=== PATIENT | male | born 1970 | race Caucasian/White ===

== ENCOUNTER 2016-12-29 12:30 | Emergency (ER) | payer BC, OTHER ==
[~2016-12-29] VITALS: Ht 185.4 cm; Wt 81.8 kg
[2016-12-29 12:32] VITALS: BP 132/82; PULSE 83; RESP 16; TEMP 98.1; O2SAT 99
--- NOTE | 2016-12-29 13:05 | PD ---
HPI Chief Complaint: Oral / Dental Pain or Problem Time Seen by Provider: 13:05 Travel History International Travel<30 days: No Contact w/Intl Traveler<30days: No Traveled to known affect area: No History of Present Illness HPI 46 year old male with PMH of anxiety presents to the ED for evaluation of intermittent bilateral jaw pain. Patient states that he has had this pain off and on for years. He states that left is greater than right. Left jaw pain radiates to the ear. He also complains that when he eats spicy foods he feels as if his salivary glands swell. He states that this swelling resolves spontaneously sometime later. He denies fever, chills, dizziness, vision changes, facial paralysis, difficulties opening or closing the mouth, rhinorrhea , sore throat, difficulty swallowing, chest pain, shortness of breath, abdominal pain, nausea or vomiting. He states that he's been evaluated by his ENT multiple times for similar symptoms. He states that he was scheduled to have an outpatient CT but was denied by his insurance. He states that one of the [place] Boys of salivary cancer and this is a cause of great anxiety for him. He states that he "doesn't like to take pills" and has been noncompliant with several treatments provided by his ENT. He endorses very rare smoking, denies familial history of cancer. [facility] Past Medical History Medical History: Denies Significant Hx Tetanus Vaccination: > 5 Years Influenza Vaccination: No Past Surgical History Surgical History: No Previous Surgery Social History Alcohol Use: No Tobacco Use: No Substance Use: No Allergies-Medications (Allergen,Severity, Reaction): Coded Allergies: Erythromycins (Verified Allergy, Severe, HIVES, 12/29/16) Reported Meds & Prescriptions Reported Meds & Active Scripts Active Cetirizine (Cetirizine HCl) 10 Mg Tab 10 Mg PO DAILY 14 Days Fluticasone Nasal [place] 50 Mcg/Act Naspr 100 Mcg EACH NARE DAILY 14 Days 50 mcg/spray Review of Systems Except as stated in HPI: all other systems reviewed are Neg Physical Exam Narrative GENERAL: Well-nourished, well-developed well-appearing white male in no acute distress. SKIN: Warm and dry. Thorough evaluation reveals no edema, ecchymosis, abrasion , or laceration of the skin. HEAD: Normocephalic. Atraumatic. EYES: No scleral icterus. No injection or drainage. PERRLA. EOMI. ENT: Pearly [place] tympanic membranes bilaterally. Left-sided serous effusion without distortion of the bony landmarks. Nasal mucosa is moist. Oropharynx without erythema, edema or exudate. Uvula midline. Airway patent. DENTAL: No loose or chipped teeth. No malocclusion. Multiple dental caries without signs of infection. NECK: Supple, trachea midline. No JVD. Scattered, mild anterior cervical chain lymphadenopathy bilaterally. No midline tenderness to palpation. Patient retains full, active, painless range of motion of the neck. CARDIOVASCULAR: Regular rate and rhythm without murmurs, gallops, or rubs. 2+ DP and radial pulses bilaterally. RESPIRATORY: Breath sounds clear and equal bilaterally. No accessory muscle use. GASTROINTESTINAL: Abdomen soft, non-tender, nondistended. + Bowel sounds MUSCULOSKELETAL: No cyanosis, or edema. Patient is ambulatory and moves extremities spontaneously. NEUROLOGICAL: Awake and alert. Cranial nerves II through XII intact. Motor and sensory grossly within normal limits. 5/5 muscle strength in all muscle groups. Normal speech. BACK: Nontender without obvious deformity. No CVA tenderness. No midline tenderness. Data Data Last Documented VS Vital Signs Date Time Temp Pulse Resp B/P Pulse Ox O2 Delivery O2 Flow Rate FiO2 12/29/16 12:32 98.1 83 16 132/82 99 MDM Medical Decision Making Medical Screen Exam Complete: Yes Emergency Medical Condition: Yes Differential Diagnosis TMJ versus parotiditis versus otitis media versus anxiety versus head and neck cancer versus other Narrative Course 46 year old male with PMH of anxiety presents to the ED for evaluation of intermittent bilateral jaw pain. Patient states that he has had this pain off and on for years, left is greater than right. Left jaw pain radiates to the ear. He also complains that when he eats spicy foods he feels as if his salivary glands "swell." Swelling resolves spontaneously sometime later. He denies fever, chills, dizziness, vision changes, facial paralysis, difficulties opening or closing the mouth, rhinorrhea, sore throat, difficulty swallowing, chest pain, shortness of breath, abdominal pain, nausea or vomiting. He states that he's been evaluated by his ENT multiple times for similar symptoms. He states that one of the Beast[place] Boys of salivary cancer and this is a cause of great anxiety for him. He states that he "doesn't like to take pills" and has been noncompliant with several treatments provided by his ENT. He endorses very rare smoking, denies familial history of cancer. He states that he sought treatment today because his ENT is out of town. Vitals reviewed. Physical exam reveals a well-appearing white male in no acute distress. There is a serous effusion of the left tympanic membrane and scattered, mild anterior cervical chain lymphadenopathy bilaterally. The ENT exam is otherwise unremarkable. No tenderness to palpation of the parotid glands bilaterally. Cranial nerves II through XII are intact. No masses palpated in the neck. I spent 10-15 minutes reassuring the patient that there was no need for emergent imaging. Unsure of the cause of the patient's symptoms. However, I recommended trial of antihistamine and nasal steroids to treat the middle-ear effusion and possible eustachian tube dysfunction. After much discussion the patient is agreeable to this care plan. He is stable and discharged home. Diagnosis Primary Impression: Middle ear effusion Qualified Code: H65.92 - Middle ear effusion, left Referrals: Ear / Nose / Throat Specialist Patient Instructions: Allergies (ED), General Instructions Additional Instructions: Rest, hydrate. Take medications as prescribed. Follow-up with the ENT as planned. Return to the ED for any urgent or emergent medical condition. Med/Other Pt SpecificInfo: Prescription(s) given Scripts Cetirizine 10 Mg Tab10 Mg PO DAILY 14 Days Ref 0 Prov:Juan David Guadalupe MD 12/29/16 Fluticasone Nasal [place] 50 Mcg/Act [id number] Mcg EACH NARE DAILY 14 Days Ref 0 50 mcg/spray Prov:Juan David Guadalupe MD 12/29/16 Disposition: 01 DISCHARGE HOME Condition: Stable Evelyn Simmons Dec 29, 2016 13:05
[2016-12-29] MEDS ORDERED: FLUT50SP EACH NARE (13:36)
[2016-12-29] MEDS ORDERED: CETI10 PO (13:36)
== END 2016-12-29 13:40 | disposition home or self-care (01) ==
LOC: PHEFT 12:30
DX: H65.92 Unspecified nonsuppurative otitis media, left ear (principal); R59.0 Localized enlarged lymph nodes
CPT/HCPCS: 99283

== ENCOUNTER 2017-02-02 08:11 | Emergency (ER) | payer BC ==
[~2017-02-02] VITALS: Ht 185.4 cm; Wt 81.8 kg
[~2017-02-02 08:11] MED LIST: CETI10 PO; FLUT50SP EACH NARE
[2017-02-02 08:19] VITALS: BP 130/84; PULSE 67; RESP 18; TEMP 98.1; O2SAT 100
[2017-02-02] MEDS ORDERED: SODIUM CHLOR 0.9% 1000 ML INJ 1,000 ML IV ONE (08:47)
--- NOTE | 2017-02-02 08:51 | PD ---
HPI Chief Complaint: Dizziness Time Seen by Provider: 08:47 Travel History International Travel<30 days: No Contact w/Intl Traveler<30days: No Traveled to known affect area: No History of Present Illness HPI 46-year-old male with history of no significant past medical issues, states he has some history of anxiety, presents to the ER today because he states that he had been drinking last evening and smoking, woke up having some dizziness and palpitations, and states that he had some coffee as well this morning, states that it is now subsiding but it made him nervous and he came in. He states that he felt some palpitations and tingling in his left chest which went up and down his body. He denies shortness of breath, fevers, coughing, vomiting, or any other issues. He also states that he could not sleep well last night. Modifying Factors: None Associated Signs & Symptoms: Palpitations, anxiety, chest discomfort Risk Factors: Had been drinking alcohol last night, had less sleep than usual PFSH Past Medical History Medical History: Denies Significant Hx Diminished Hearing: No Influenza Vaccination: No ?: Not Past Surgical History Surgical History: No Previous Surgery Social History Alcohol Use: Yes Tobacco Use: Yes Substance Use: No Allergies-Medications (Allergen,Severity, Reaction): Coded Allergies: Erythromycins (Verified Allergy, Severe, HIVES, 02/02/17) Reported Meds & Prescriptions Reported Meds & Active Scripts Active Review of Systems Except as stated in HPI: all other systems reviewed are Neg Physical Exam Narrative GENERAL: Well-developed middle age male patient who appears mildly anxious, in mild distress. Awake and oriented 3. SKIN: Focused skin assessment warm/dry. HEAD: Atraumatic. Normocephalic. EYES: Pupils equal and round. No scleral icterus. No injection or drainage. ENT: No nasal bleeding or discharge. Mucous membranes pink and moist. NECK: Trachea midline. No JVD. CARDIOVASCULAR: Regular rate and rhythm. No murmur appreciated. Pulses are present and equal bilaterally. RESPIRATORY: No accessory muscle use. Clear to auscultation. Breath sounds equal bilaterally. GASTROINTESTINAL: Abdomen soft, non-tender, nondistended. Hepatic and splenic margins not palpable. MUSCULOSKELETAL: No obvious deformities. No clubbing. No cyanosis. No edema. NEUROLOGICAL: Awake and alert. No obvious cranial nerve deficits. Motor grossly within normal limits. Normal speech. PSYCHIATRIC: Appropriate mood and affect; insight and judgment normal. Data Data Last Documented VS Vital Signs Date Time Temp Pulse Resp B/P Pulse Ox O2 Delivery O2 Flow Rate FiO2 02/02/17 08:58 72 18 119/77 98 Room Air 02/02/17 08:19 98.1 Orders Complete Blood Count With Diff (02/02/17 08:47) Comprehensive Metabolic Panel (02/02/17 08:47) Magnesium (Mg) (02/02/17 08:47) Ecg Monitoring (02/02/17 08:47) Iv Access Insert/Monitor (02/02/17 08:47) Oximetry (02/02/17 08:47) Sodium Chloride 0.9% Flush (Ns Flush) (02/02/17 09:00) Sodium Chlor 0.9% 1000 Ml Inj (Ns 1000 M (02/02/17 08:47) Drug Screen, Random Urine (02/02/17 08:47) Electrocardiogram (02/02/17 08:57) Labs Laboratory Tests Test 02/02/17 08:50 White Blood Count 5.0 TH/MM3 Red Blood Count 4.99 MIL/MM3 Hemoglobin 15.2 GM/DL Hematocrit 45.1 % Mean Corpuscular Volume 90.3 FL Mean Corpuscular Hemoglobin 30.5 PG Mean Corpuscular Hemoglobin 33.8 % Concent Red Cell Distribution Width 13.3 % Platelet Count 168 TH/MM3 Mean Platelet Volume 9.4 FL Neutrophils (%) (Auto) 42.9 % Lymphocytes (%) (Auto) 36.9 % Monocytes (%) (Auto) 7.7 % Eosinophils (%) (Auto) 11.9 % Basophils (%) (Auto) 0.6 % Neutrophils # (Auto) 2.2 TH/MM3 Lymphocytes # (Auto) 1.8 TH/MM3 Monocytes # (Auto) 0.4 TH/MM3 Eosinophils # (Auto) 0.6 TH/MM3 Basophils # (Auto) 0.0 TH/MM3 CBC Comment DIFF FINAL Differential Comment Sodium Level 140 MEQ/L Potassium Level 3.9 MEQ/L Chloride Level 105 MEQ/L Carbon Dioxide Level 27.9 MEQ/L Anion Gap 7 MEQ/L Blood Urea Nitrogen 7 MG/DL Creatinine 0.97 MG/DL Estimat Glomerular Filtration 84 ML/MIN Rate Random Glucose 103 MG/DL Calcium Level 8.9 MG/DL Magnesium Level 2.2 MG/DL Total Bilirubin 0.5 MG/DL Aspartate Amino Transf 20 U/L (AST/SGOT) Alanine Aminotransferase 24 U/L (ALT/SGPT) Alkaline Phosphatase 54 U/L Total Protein 6.9 GM/DL Albumin 4.0 GM/DL [facility] Medical Decision Making Medical Screen Exam Complete: Yes Emergency Medical Condition: Yes Medical Record Reviewed: Yes Interpretation(s) EKG shows normal sinus rhythm at a rate of 70 bpm with a right bundle branch block pattern. No signs of acute ST-T changes. Laboratory Tests Test 02/02/17 08:50 Eosinophils (%) (Auto) 11.9 % (0.0-4.0) Eosinophils # (Auto) 0.6 TH/MM3 (0-0.4) Estimat Glomerular Filtration 84 ML/MIN (>89) Rate Differential Diagnosis Palpitations, dizzinessdehydration versus metabolic issues versus anxiety versus dysrhythmias versus caffeine related side effect Narrative Course EKG did not show significant dysrhythmias. Vital signs are stable in the ER. Lab work did not indicate significant metabolic issues. At this point, I do not see any signs of acute processes and my plan would be to release the patient would follow-up to primary care physician. Return for any worsening in symptoms as needed. The plan has been discussed with the patient and he states understanding. Diagnosis Primary Impression: Palpitations Disposition: 01 DISCHARGE HOME Condition: Stable Charlene Jackson MD February 02, 2017 08:51
[2017-02-02 08:58] VITALS: BP 119/77; PULSE 72; RESP 18; O2SAT 98
[2017-02-02 08:58] LABS: AUTOMATED NEUTROPHIL # 2.2 TH/MM3 (1.8-7.7); BASOPHIL % 0.6 % (0.0-2.0); EOSINOPHIL # 0.6 TH/MM3 (0-0.4); EOSINOPHIL % 11.9 % (0.0-4.0); HEMATOCRIT 45.1 % (39.0-51.0); HEMO FLAGS DIFF FINAL; LYMPH % 36.9 % (9.0-44.0); LYMPHOCYTE # 1.8 TH/MM3 (1.0-4.8); MEAN CELL VOLUME 90.3 FL (80.0-100.0); MEAN CORPUSCULAR HEMOGLOBIN 30.5 PG (27.0-34.0); MEAN CORPUSCULAR HGB CONC 33.8 % (32.0-36.0); MONO % 7.7 % (0.0-8.0); NEUT % 42.9 % (16.0-70.0); PLATELET COUNT 168 TH/MM3 (150-450); RED BLOOD COUNT 4.99 MIL/MM3 (4.50-5.90); RED CELL DISTRIBUTION WIDTH 13.3 % (11.6-17.2)
[2017-02-02] MEDS ORDERED: SODIUM CHLORIDE 0.9% FLUSH 10 ML FLUSH IVF PRN (09:00)
[2017-02-02 09:07] LABS: CHLORIDE 105 MEQ/L (98-107); POTASSIUM 3.9 MEQ/L (3.5-5.1); SODIUM (NA) 140 MEQ/L (136-145)
[2017-02-02 09:11] LABS: ANION GAP 7 MEQ/L (5-15); BICARBONATE 27.9 MEQ/L (21.0-32.0); BLOOD UREA NITROGEN 7 MG/DL (7-18); MAGNESIUM 2.2 MG/DL (1.5-2.5)
[2017-02-02 09:14] LABS: ALT (GPT) 24 U/L (12-78); AST (GOT) 20 U/L (15-37); GLOMERULAR FILTRATION RATE 84 ML/MIN (>89)
[2017-02-02 09:15] LABS: TOTAL BILIRUBIN ADULT 0.5 MG/DL (0.2-1.0)
[2017-02-02 09:17] LABS: ALKALINE PHOSPHATASE 54 U/L (45-117)
--- NOTE | 2017-02-03 11:19 | EKG ---
Date Performed: 02/02/2017 Time Performed: 08:31:02 PTAGE: 46 years EKG: Sinus rhythm Right bundle branch block Abnormal ECG NO PREVIOUS TRACING DOCTOR: Flavio Shine Interpretating Date/Time 02/03/2017 11:17:09
== END 2017-02-02 09:52 | disposition home or self-care (01) ==
LOC: PHED 08:11
DX: R00.2 Palpitations (principal); I45.10 Unspecified right bundle-branch block; R20.2 Paresthesia of skin; F41.9 Anxiety disorder, unspecified; R42 Dizziness and giddiness; Z72.0 Tobacco use; Z88.1 Allergy status to other antibiotic agents; R94.31 Abnormal electrocardiogram [ECG] [EKG]
CPT/HCPCS: 80053; 82550; 82552; 83735; 84484; 85025; 93005; 96360; 99284; J7030

== ENCOUNTER 2017-02-02 15:50 | Emergency (ER) | payer BC ==
[~2017-02-02] VITALS: Ht 186.7 cm; Wt 84.0 kg
[2017-02-02 15:54] VITALS: BP 141/88; PULSE 87; RESP 22; TEMP 98.8; O2SAT 99
--- NOTE | 2017-02-02 15:55 | PD ---
Physical Exam Time Seen by Provider: 15:54 Narrative 46 y/o male here for evaluation of palpitations, mild chest tightness, feels "flushed." Seen earlier today at [facility] for evaluation of the same symptoms. Vital signs reviewed. Seen at triage desk. Awaiting bed placement. Data Data Last Documented VS Vital Signs Date Time Temp Pulse Resp B/P Pulse Ox O2 Delivery O2 Flow Rate FiO2 02/02/17 15:54 98.8 87 22 141/88 99 MDM Medical Record Reviewed: Yes Supervised Visit with LEOBARDO: Jake Schroeder February 02, 2017 15:55
[2017-02-02 18:23] VITALS: BP 116/69; PULSE 70; RESP 18; O2SAT 98
[2017-02-02 18:35] LABS: CREATINE KINASE 212 U/L (39-308)
--- NOTE | 2017-02-02 18:46 | PD ---
HPI Chief Complaint: Cardiac Complaint Time Seen by Provider: 17:30 Travel History International Travel<30 days: No Contact w/Intl Traveler<30days: No Traveled to known affect area: No History of Present Illness HPI 46-year-old male with PMH of untreated anxiety presents to the ED for evaluation of intermittent palpitations, chest tightness, feeling "flushed." Patient can't identify correlating factors. He denies associated shortness of breath, diaphoresis, arm pain, nausea or vomiting. He states that symptoms onset this morning after a night of heavy drinking. He was evaluated at [facility] this morning with the same symptoms and has follow-up with Dr. Sol on 02/04. He has never smoked. He endorses family history of father with WA "in his 60s." [facility] Past Medical History Diminished Hearing: No Tetanus Vaccination: Unknown Influenza Vaccination: No Social History Alcohol Use: Yes Tobacco Use: Yes Substance Use: No Allergies-Medications (Allergen,Severity, Reaction): Coded Allergies: Erythromycins (Verified Allergy, Severe, HIVES, 02/02/17) Reported Meds & Prescriptions Reported Meds & Active Scripts Active Review of Systems Except as stated in HPI: all other systems reviewed are Neg Physical Exam Narrative GENERAL: Well-nourished, well-developed thin, well-appearing white male in no acute distress. SKIN: Focused skin assessment warm/dry. HEAD: Normocephalic. EYES: No scleral icterus. No injection or drainage. NECK: Supple, trachea midline. No JVD or lymphadenopathy. CARDIOVASCULAR: Regular rate and rhythm without murmurs, gallops, or rubs. 2+ DP and radial pulses bilaterally. CHEST: Nontender throughout without deformity or crepitance. RESPIRATORY: Breath sounds clear and equal bilaterally. No accessory muscle use. GASTROINTESTINAL: Abdomen soft, non-tender, nondistended. Active bowel sounds. MUSCULOSKELETAL: No cyanosis, or edema. Patient is ambulatory and moves extremities spontaneously. BACK: Nontender without obvious deformity. No CVA tenderness. Data Data Last Documented VS Vital Signs Date Time Temp Pulse Resp B/P Pulse Ox O2 Delivery O2 Flow Rate FiO2 02/02/17 18:23 70 18 116/69 98 Room Air 02/02/17 15:54 98.8 Orders Electrocardiogram (02/02/17 15:56) Electrocardiogram (02/02/17 17:34) Ckmb (Isoenzyme) Profile (02/02/17 17:34) Troponin I (02/02/17 17:34) CKMB (02/02/17 18:05) CKMB% (02/02/17 18:05) Labs Laboratory Tests Test 02/02/17 18:05 Total Creatine Kinase 212 U/L Creatine Kinase MB 0.6 NG/ML Troponin I LESS THAN 0.02 NG/ML MDM Medical Decision Making Medical Screen Exam Complete: Yes Emergency Medical Condition: Yes Differential Diagnosis Anxiety versus alcohol induced palpitations versus dehydration versus electrolyte abnormalities versus less likely ACS versus other Narrative Course 46-year-old male with PMH of untreated anxiety presents to the ED for evaluation of intermittent palpitations, chest tightness, feeling "flushed." Patient can't identify correlating factors. He denies associated shortness of breath, diaphoresis, arm pain, nausea or vomiting. He states that symptoms onset this morning after a night of heavy drinking. He was evaluated at [facility] this morning with the same symptoms and has follow-up with Dr. Sol on 02/04. He has never smoked. He endorses family history of father with WA "in his 60s." Vitals reviewed. Physical exam is reassuring. EKG rate 90, sinus rhythm. AZ interval 136, QRS 148, QTC 417. Right bundle branch block. Normal axis. No ST elevations or depressions. Reviewed by . No changes as compared to this morning's EKG. Cardiac enzymes negative 1. I spent 15 minutes discussing risk of WA with the patient. I spoke that his symptoms are either caused by anxiety or due to heavy consumption of alcohol overnight. He has follow-up in [address] Sol. He is instructed return to normal, gentle activities, follow-up with Dr. Sol as planned. He indicated understanding of instructions and is agreeable to the care plan. He is stable and discharged home. Diagnosis Primary Impression: Palpitations Referrals: Nelia Sol MD Patient Instructions: General Instructions, Palpitations (ED) Additional Instructions: Rest, hydrate. Return to normal, gentle activity as tolerated. Follow-up with Dr. Sol on as planned. Return to the ED for any urgent or emergent medical condition. Disposition: DISCHARGE HOME Condition: Stable Evelyn Simmons February 02, 2017 18:46
[2017-02-02 18:49] LABS: CKMB 0.6 NG/ML (0.5-3.6)
--- NOTE | 2017-02-03 11:01 | EKG ---
Date Performed: 02/02/2017 Time Performed: 16:06:42 PTAGE: 46 years EKG: Sinus rhythm RIGHT BUNDLE BRANCH BLOCK ABNORMAL ECG PREVIOUS TRACING : 02/02/2017 16.05 DOCTOR: Flavio Shine Interpretating Date/Time 02/03/2017 10:59:27
== END 2017-02-02 20:00 | disposition home or self-care (01) ==
LOC: NEPD 15:50
DX: R00.2 Palpitations (principal); R94.31 Abnormal electrocardiogram [ECG] [EKG]; Z72.0 Tobacco use
CPT/HCPCS: 82550; 82552; 84484; 93005

== ENCOUNTER 2017-08-09 11:30 | Emergency (ER) | payer BC ==
[~2017-08-09] VITALS: Ht 185.4 cm; Wt 78.0 kg
[2017-08-09 11:33] VITALS: BP 147/88; PULSE 101; RESP 22; TEMP 98; O2SAT 99
[2017-08-09 11:40] VITALS: BP 120/79; PULSE 78; RESP 19; TEMP 98.2; O2SAT 100
[2017-08-09] MEDS ORDERED: FLUT1SPR5 EACH NARE (12:22)
--- NOTE | 2017-08-09 12:22 | PD ---
HPI Chief Complaint: Medical Clearance Time Seen by Provider: 11:50 Travel History International Travel<30 days: No Contact w/Intl Traveler<30days: No Traveled to known affect area: No History of Present Illness HPI 47-year-old male presents the emergency department with sudden onset or ringing, followed by palpitations, shortness of breath, chest tightness, and tingling in the feet and hands. Patient states he's had intermittent tinnitus symptoms for the past couple of weeks. He denies headache, sore throat, or other symptoms. Patient was concerned that he might be having a stroke which is why he came into the emergency department today. Vital signs upon arrival are improved with normal heart rate and blood pressure. The patient states the tingling in his hands has gone. He states the ringing in his ears has improved as well. Patient is noted to have had a full cardiac workup in February due to his recurrent health limitations. Significant findings were noted at that time. Patient is allergic to azithromycin and erythromycin. PFSH Past Medical History Heart Rhythm Problems: Yes (RBB) Cardiovascular Problems: Yes Diminished Hearing: No Tetanus Vaccination: Unknown Influenza Vaccination: No Past Surgical History Surgical History: No Previous Surgery Social History Alcohol Use: Yes (OCC) Tobacco Use: Yes Substance Use: No Allergies-Medications (Allergen,Severity, Reaction): Coded Allergies: azithromycin (Unverified Allergy, Severe, HIVES, 08/09/17) erythromycin base (Unverified Allergy, Severe, HIVES, 08/09/17) Reported Meds & Prescriptions Reported Meds & Active Scripts Active Flonase Nasal [place] (Fluticasone Nasal [place]) 50 Mcg/Act [place] 100 Mcg EACH NARE BID Review of Systems Except as stated in HPI: all other systems reviewed are Neg General / Constitutional: No: Fever Eyes: No: Visual changes HENT: Positive: Lightheadedness, Other (Tinnitis), No: Headaches, Vertigo, Sore Throat, Rhinitis, Rhinorrhea, Congestion, Nosebleed, Neck Stiffness, Gingival Bleeding, Dental Difficulties, Ear Discharge, Earache Cardiovascular: Positive: Palpitations, No: Chest Pain or Discomfort, Irregular Rhythm, Tachycardia Respiratory: Positive: Shortness of Breath Gastrointestinal: No: Abdominal Pain Genitourinary: No: Dysuria Musculoskeletal: No: Pain Skin: No Rash Neurologic: No: Weakness Psychiatric: No: Depression Endocrine: No: Polydipsia Hematologic/Lymphatic: No: Easy Bruising Physical Exam Narrative GENERAL: Patient appears anxious but otherwise in no acute distress. SKIN: Warm and dry. Normal turgor. HEAD: Atraumatic. Normocephalic. EYES: Pupils equal and round. No scleral icterus. No injection or drainage. ENT: No nasal bleeding or discharge. Mucous membranes pink and moist. Patient has bilateral serous effusions to both TMs without significant erythema or dullness. No sinus tenderness to palpation or percussion. Her. Airway is patent. NECK: Trachea midline. Supple nontender. CARDIOVASCULAR: Regular rate and rhythm. RESPIRATORY: No accessory muscle use. Clear to auscultation. Breath sounds equal bilaterally. GASTROINTESTINAL: Abdomen soft, non-tender, nondistended. Hepatic and splenic margins not palpable. MUSCULOSKELETAL: Extremities without clubbing, cyanosis, or edema. No obvious deformities. NEUROLOGICAL: Awake and alert. No obvious cranial nerve deficits. Normal fine motor skill exam. Motor grossly within normal limits. Five out of 5 muscle strength in the arms and legs. Normal speech. PSYCHIATRIC: Appropriate mood and affect; insight and judgment normal. Data Data Last Documented VS Vital Signs Date Time Temp Pulse Resp B/P (MAP) Pulse Ox O2 Delivery O2 Flow Rate FiO2 08/09/17 11:50 79 19 08/09/17 11:40 98.2 120/79 (93) 100 MDM Medical Decision Making Medical Screen Exam Complete: Yes Emergency Medical Condition: Yes Medical Record Reviewed: Yes Differential Diagnosis Tinnitis. Eustachian tube dysfunction. Anxiety. Hyperventilation. Narrative Course Patient is evaluated felt to have tendinitis secondary to eustachian tube dysfunction and anxiety. Further medical workup was not deemed warranted based on my history and physical. Had a long discussion with the patient regarding anxiety and panic attacks and his need for further follow-up with a local psychiatrist or counselor. Patient will be treated with Flonase nasal spray 2 sprays nostril daily for his eustachian tube dysfunction. Patient is encouraged to follow local counselor as discussed for his anxiety. Patient can return the emergency Department with any worsening symptoms as needed. Diagnosis Primary Impression: Middle ear effusion Qualified Codes: H65.92 - Unspecified nonsuppurative otitis media, left ear Additional Impressions: Panic attack as reaction to stress H/O tinnitus Referrals: [facility] Patient Instructions: Anxiety (ED), Eustachian Tube Dysfunction (GEN), General Instructions, Moderate Sedation in Children (ED) Additional Instructions: Patient is evaluated felt to have tendinitis secondary to eustachian tube dysfunction and anxiety. Further medical workup was not deemed warranted based on my history and physical. Had a long discussion with the patient regarding anxiety and panic attacks and his need for further follow-up with a local psychiatrist or counselor. Patient will be treated with Flonase nasal spray 2 sprays nostril daily for his eustachian tube dysfunction. Patient is encouraged to follow local counselor as discussed for his anxiety. Patient can return the emergency Department with any worsening symptoms as needed. Med/Other Pt SpecificInfo: Prescription(s) given Scripts Fluticasone Nasal [place] (Flonase Nasal [place]) 50 Mcg/Act [place] 100 MCG EACH NARE BID for Allergies, #1 BOTTLE 0 Refills Prov: Lisa River MD 08/09/17 Disposition: 01 DISCHARGE HOME Condition: Stable Kehinde Garza Aug 09, 2017 12:22
== END 2017-08-09 13:09 | disposition home or self-care (01) ==
LOC: NEPD 11:30
DX: H65.92 Unspecified nonsuppurative otitis media, left ear (principal); F41.0 Panic disorder [episodic paroxysmal anxiety]; F43.0 Acute stress reaction; F41.9 Anxiety disorder, unspecified; R00.2 Palpitations; R42 Dizziness and giddiness; R20.2 Paresthesia of skin; Z72.0 Tobacco use
CPT/HCPCS: 99283

== ENCOUNTER 2018-02-22 12:02 | Day surgery (SDC) | payer BC ==
[~2018-02-22] VITALS: Ht 185.4 cm; Wt 81.4 kg
[~2018-02-22 12:02] MED LIST changes: -CETI10 PO; +FLUT1SPR5 EACH NARE; -FLUT50SP EACH NARE
[2018-02-22] MEDS ORDERED: IOHEXOL 350 MG/ML 100 ML BTL (for Cath Lab) OTHER ONE (12:03)
[2018-02-22] MEDS ORDERED: ALPR.5 PO (12:55)
[2018-02-22] MEDS ORDERED: MULT-65 PO (12:55)
[2018-02-22 12:58] VITALS: BP 147/80; PULSE 85; RESP 18; TEMP 98.8; O2SAT 100
[2018-02-22 12:58] LABS: AUTOMATED NEUTROPHIL # 3.2 TH/MM3 (1.8-7.7); BASOPHIL % 0.9 % (0.0-2.0); EOSINOPHIL # 0.2 TH/MM3 (0-0.4); EOSINOPHIL % 4.4 % (0.0-4.0); HEMATOCRIT 46.3 % (39.0-51.0); HEMOGLOBIN 15.9 GM/DL (13.0-17.0); LYMPH % 27.9 % (9.0-44.0); LYMPHOCYTE # 1.5 TH/MM3 (1.0-4.8); MEAN CELL VOLUME 89.8 FL (80.0-100.0); MEAN CORPUSCULAR HEMOGLOBIN 30.8 PG (27.0-34.0); MEAN CORPUSCULAR HGB CONC 34.3 % (32.0-36.0); MEAN PLATELET VOLUME 9.7 FL (7.0-11.0); MONO % 7.8 % (0.0-8.0); MONOCYTE # 0.4 TH/MM3 (0-0.9); PLATELET COUNT 187 TH/MM3 (150-450); RED BLOOD COUNT 5.15 MIL/MM3 (4.50-5.90); RED CELL DISTRIBUTION WIDTH 12.9 % (11.6-17.2); WHITE BLOOD COUNT 5.4 TH/MM3 (4.0-11.0)
[2018-02-22] MEDS ORDERED: DIAZEPAM 10 MG TAB PO ONE (13:00)
[2018-02-22] MEDS ORDERED: NS 1000P @30 MLS/HR (KVO) IV SCH (13:00)
[2018-02-22 13:18] LABS: BICARBONATE 26.2 MEQ/L (21.0-32.0); CALCIUM 9.6 MG/DL (8.5-10.1); CREATININE 1.03 MG/DL (0.60-1.30)
[2018-02-22] MEDS ORDERED: HEPARIN-NS/PF INJ 1,000 ML ONE (13:18)
[2018-02-22] MEDS ORDERED: MIDAZOLAM HCL 2 MG/2 ML VIAL ONE (13:31)
--- NOTE | 2018-02-22 14:40 | CATHPROC ---
[facility] HIS Report Study Information Study Number Admission Scheduled Start Study Start [id number] Feb 22 2018 12:02PM 02/22/2018 Feb 22 2018 1:18PM [place] [facility] Cardiac Catheterization Admit Source Facility Department Other [facility] - Nursing Clinical Director Physician and Clinical Staff Initial Nelia Arshad Accounts Officer David Hernandez,SAVANNAH Accounts Officer Lucho Webster,RN Recorder Seth Manriquez,RT(R) ScrTeri Zapata,RT(R) (BS) Procedures Performed Procedure Location (Site) Vessel Name Angiogram LV LV Ventricle Coronary Angiograms LCA Left Coronary Coronary Angiograms RCA Right Coronary L Heart Cath Equipment Time Receiving Tank Operator Description Size Mfg Part Number Used/Scraped TRANSDUCER, TRTrace TechnologiesAVE [id number] 13:24 MCDONALD LAWSON * Used W/STOCKCOCK *[id number] [id number] *[id number] [id number] *[id number] [id number] *[id number] 13:24 [employer] BLANKET,WARM AIR CCL * Used *[id number] 13:24 [employer] PACK, CCL CUSTOM * Used *[id number] 13:24 [employer] PACER PEN, SKIN DUAL W/ RULER * Used *[id number] 13:24 [employer] MEDICAL WIRE, 3MMJ .035 180CM 180CM Used *[id number] PROBE COVER, STERILE [id number] 13:24 [employer] MEDICAL * Used ULTRASOUND W/ GEL *[id number] 13:24 NAMIC MANIFOLD, 4 PORT * Used *[id number] 13:24 NAMIC TUBING, HIGH PRESSURE 48" 48" Used *[id number] 13:24 [employer]COMED OMNIPAQUE, 350 MG, 150ML 150ML [id number] Used 14:07 [employer]ED OMNIPAQUE, 350 MG, 50ML 50ML [id number] Used [id number] 13:43 [employer]UMO MEDICAL SHEATH, FR4 TERUMO (10CM) FR 4 Used *[id number] 13:24 [employer] MED[employer] SHEATH, FR5 TERUMO (10CM) FR 5 Used *[id number] History: Current Medications Medication Dosage/Unit Route Frequency Last Date/Time Taken Xanax History: Allergies Allergy Reaction Erythromycins HIVES erythromycin base HIVES azithromycin HIVES History: Risk Factors Family History of Hypertension Dyslipidemia Previous MN Previous Heart Failure Premature CAD No No No No No Prior Valve Prior PCI Prior CABG Surgery No No No Cerebrovascular Peripheral Artery Chronic Lung On Dialysis Diabetes Disease Disease Disease No No No No No History: Symptoms/Diagnosis Selection Items Chest pain SOB History: Stress Tests Stress or Imaging Studies Performed Yes Standard Exercise Stress Test No Stress Echo No Stress Test SPECT Stress Test SPECT Result Stress Test SPECT Ischemia Risk/Extent Yes Positive Intermediate Stress Test CMR No Cardiac CTA Coronary Calcium Score No No History: Other Current Smoker No Labs Hgb (g/dl) Hct (%) RBC (MIL/MM3) WBC (l/cumm) Platelets (thousands) 11.60-17.00 35.00-51.00 4.00-5.90 4.00-11.00 150.00-450.00 15.9 46.3 5.1 5.4 187 Glucose (mg/dl) BUN (mg/dl) Creatinine (mg/dl) BUN:Creatinine (1:x) 74.00-106.00 7.00-18.00 0.50-1.30 10.00-20.00 99 12 1.0 12 Na (meq/l) K (meq/l) Cl (meq/l) CO2 (mmol/L) Ca (mg/dl) 136.00-145.00 3.50-5.10 98.00-107.00 21.00-32.00 8.50-10.10 140 3.3 102 26.2 9.6 CPK-MB (ng/ML) 0.50-3.60 Not Drawn Medication Medication Total Dose (Bolus/Oral) Medication Total Dosage/Unit 1% XYLOCAINE 20 mL FENTANYL 50 mcg VERSED 2 mg Medications (Bolus/Oral) Medication Time Given Dosage/Unit Administered By Reason VERSED 02/22/2018 1:50:00 PM 0.5 mg David Hernandez 0.5 mg VERSED given in lab by David Hernandez RN in Left Antecubital via Peripheral IV. FENTANYL 02/22/2018 1:51:00 PM 25 mcg David Hernandez 25 mcg FENTANYL given in lab by David Hernandez, SAVANNAH in Left Antecubital via Peripheral IV. VERSED 02/22/2018 1:58:00 PM 0.5 mg David Hernandez 0.5 mg VERSED given in lab by David Hernandez RN in Left Antecubital via Peripheral IV. 1% XYLOCAINE 02/22/2018 2:01:57 PM 20 mL Nelia Sol 20 mL 1% XYLOCAINE given in lab by eNlia Sol in Right Groin via Subcutaneous. VERSED 02/22/2018 2:02:57 PM 1 mg David Hernandez 1 mg VERSED given in lab by David Hernandez RN in Left Antecubital via Peripheral IV. FENTANYL 02/22/2018 2:04:26 PM 25 mcg David Hernandez 25 mcg FENTANYL given in lab by David Hernandez RN in Left Antecubital via Peripheral IV. Medication (Drip) Medication Time Given Dosage/Unit Concentration/Unit Diluent (ml) Solution IV Solutions 02/22/2018 1:21:16 PM 0 mL (IV) 500 NaCl .9 IV Solutions given in lab by Lucho Webster RN in Left Antecubital via Peripheral IV. Pump/Drip Flow = 20 ml/hr using NaCl .9. Initial Case Assessment Cardiovascular HR Rhythm NIBP Chest Pain 79 Sinus 125/76 0 Edema Present Skin color Skin None Normal Warm Dry Circulatory - Right Pulses Dorsalis Pedis Femoral 2 2 Scale (0,1,2,3,4,d) Circulatory - Left Pulses Dorsalis Pedis Femoral 2 2 Scale (0,1,2,3,4,d) Neurological State Oriented to time-place- Alert Moves all extremities person Respiration - General Respiration Rate SpO2 (%) O2 (lpm) (B/min) 8 100 0 Final Case Assessment Cardiovascular HR Rhythm NIBP Chest Pain 79 Sinus 122/70 0 Edema Present Skin color Skin None Normal Warm Dry Circulatory - Right Pulses Dorsalis Pedis Femoral 2 2 Scale (0,1,2,3,4,d) Circulatory - Left Pulses Dorsalis Pedis Femoral 2 2 Scale (0,1,2,3,4,d) Neurological State Oriented to time-place- Alert Moves all extremities person Respiration - General Respiration Rate SpO2 (%) O2 (lpm) (B/min) 8 99 0 Chronological Log Time Study Chronological Log 13:13:29 Patient arrived via Bed. 13:18:37 Patient Name, D.O.B, / Armband Verified By R.N. 13:18:38 Consent signed by the physician and the patient and verified by the Nursing Clinical Director staff. 13:18:38 Pre-op and post- op instructions given; patient acknowledges understanding of instructions. 13:18:39 Verbal Stimulation=2 Physical Stimulation=2 Airway=2 Respiration=2 TOTAL=8. (0=absent, 1=li mited, 2=present) 13:20:47 Presedation assessment performed by Nursing Clinical Director RN. 13:20:51 Patient has been NPO for More than 6Hrs. 13:20:53 Skin Breakdown-none per patient. 13:20:54 Patient Warmer Placed on the Table. 13:20:57 Charis Prominences Protected 13:20:57 A # 20 IV was noted in the Antecubital (left). Grade = 0 IV Solutions given in lab by Lucho Webster RN in Left Antecubital via Peripheral IV. Pump/Drip Flow = 20 ml/hr using 13:21:16 NaCl .9. Assessment: Initial Case, HR=79 BPM, Rhythm=Sinus, PQIN=710/76 mmhg, Chest Pain=0, Edema=None, Color=Normal, Skin = Warm, Dry Right Pulses: David Ped=2, Femoral=2 13:21:37 Left Pulses: David Ped=2, Femoral=2 Neurological: State=Alert, Ox3, MARTIN Respiration: Resp=8 B/min, RkZ2=265 %, O2=0 lpm 13:21:37 History and physical on the chart or being dictated. Vitals capture started with the following parameters, Patient=Adult, Interval=5 min, Initial Pr inunhl=147 mmHg, 13:21:48 Deflation Rate=5 mmHg, Cuff placed on Right Arm 13:22:08 Reference ECG taken 13:22:26 HR=76 bpm, KSUP=531/76 mmhg, QvP7=766.0 %, Resp=7 B/min, Pain=0, Zhanna=10, Almanza=2 13:23:16 Bilateral groins prepped with 2% chlorhexidine, and draped after a 3 minute waiting time. 13:27:23 HR=89 bpm, HXKZ=326/67 mmhg, IfZ5=034.0 %, Resp=14 B/min, Pain=0, Zhanna=10, Almanza=2 13:30:42 MD paged 13:30:55 Pressure channel 1 zeroed. 13:32:22 HR=81 bpm, SZQT=748/80 mmhg, ShI7=128.0 %, Resp=9 B/min, Pain=0, Zhanna=10, Almanza=2 13:37:23 HR=78 bpm, KKNB=521/75 mmhg, DuU7=157.0 %, Resp=8 B/min, Pain=0, Zhanna=10, Almanza=2 13:42:24 HR=78 bpm, KCCU=503/71 mmhg, EyV3=507.0 %, Resp=7 B/min, Pain=0, Zhanna=10, Almanza=2 13:47:22 MD arrived. 13:47:25 HR=75 bpm, PIKD=311/68 mmhg, SpO2=99.0 %, Resp=6 B/min, Pain=0, Zhanna=10, Almanza=2 13:50:00 0.5 mg VERSED given in lab by David Henrandez RN in Left Antecubital via Peripheral IV. 13:51:00 25 mcg FENTANYL given in lab by David Hernandez, SAVANNAH in Left Antecubital via Peripheral IV. 13:52:22 HR=75 bpm, YPHW=367/76 mmhg, SpO2=99.0 %, Resp=12 B/min, Pain=0, Zhanna=10, Almanza=2 13:57:25 HR=75 bpm, UFMN=262/78 mmhg, SpO2=99.0 %, Resp=8 B/min, Pain=0, Zhanna=10, Almanza=2 13:58:00 0.5 mg VERSED given in lab by David Hernandez, SAVANNAH in Left Antecubital via Peripheral IV. Time Out. Correct patient, correct procedure, correct physician, labs, allergies, and equipment verified with laborer electroplating 14:01:26 team present. Fire risk assesment completed (see hard stop sheet for coding). Time Out Conc urred by and individual staff in procedure. 14:01:39 Case Start 14:01:57 20 mL 1% XYLOCAINE given in lab by Nelia Sol in Right Groin via Subcutaneous. 14:02:24 HR=84 bpm, YNGI=112/76 mmhg, SpO2=98.0 %, Resp=12 B/min, Pain=0, Zhanna=10, Almanza=2 14:02:57 1 mg VERSED given in lab by David Hernandez RN in Left Antecubital via Peripheral IV. 14:04:12 Access site was Right Femoral Artery. 14:04:26 25 mcg FENTANYL given in lab by David Hernandez, RN in Left Antecubital via Peripheral IV. 14:04:33 A SHEATH, FR5 TERUMO (10CM) FR 5 was advanced into the Fem Art (right) using the ~TECHNIQUE ~ technique. A PIGTAIL ANG. INFINITI CATHETER FR 5 was advanced over a wire. OMNIPAQUE, 350 MG, 150ML 150ML was used 14:05:05 for injections. 14:06:54 The LV was injected at 10 cc/sec for a total of 30. OMNIPAQUE, 350 MG, 50ML 50ML used. 14:07:25 HR=84 bpm, ZWGI=698/69 mmhg, SpO2=97.0 %, Resp=10 B/min, Pain=0, Zhanna=10, Almanza=2 Recorded Pressure: LV, HR=84, Condition=Condition 1 14:07:36 (Left Ventricle) LV 99/-2/7 Recorded Pressure: LV, Ao, HR=83, Condition=Condition 1 14:07:41 (Left Ventricle) LV 99/-3/5, (Aorta) Ao 102/63/81 14:08:16 Catheter was removed A JL 4.0 INFINITI CATHETER FR 5 was advanced over a wire. OMNIPAQUE, 350 MG, 150ML 150ML was us ed for 14:08:17 injections. Recorded Pressure: Ao, HR=80, Condition=Condition 1 14:09:31 (Aorta) Ao 107/69/86 14:09:57 The LCA was injected and visualized at various angles. OMNIPAQUE, 350 MG, 150ML 150ML used . 14:11:05 Catheter was removed A JR 4.0 INFINITI CATHETER FR 5 was advanced over a wire. OMNIPAQUE, 350 MG, 150ML 150ML was us ed for 14:11:37 injections. 14:12:23 The RCA was injected and visualized at various angles. OMNIPAQUE, 350 MG, 150ML 150ML use d. 14:12:29 HR=91 bpm, FTBX=731/72 mmhg, SpO2=98.0 %, Resp=13 B/min, Pain=0, Zhanna=10, Almanza=2 14:12:57 Catheter was removed 14:15:28 Case End 14:16:35 No case complications noted. 14:16:37 Cine recording checked. 14:17:28 HR=83 bpm, DAGC=972/70 mmhg, SpO2=97.0 %, Resp=16 B/min, Pain=0, Zhanna=10, Almanza=2 14:21:43 Bedside Report will be given. Assessment: Final Case, HR=79 BPM, Rhythm=Sinus, XHTH=402/70 mmhg, Chest Pain=0, Edema=None, Color=Normal, Skin = Warm, Dry Right Pulses: David Ped=2, Femoral=2 14:21:48 Left Pulses: David Ped=2, Femoral=2 Neurological: State=Alert, Ox3, MARTIN Respiration: Resp=8 B/min, SpO2=99 %, O2=0 lpm 14:22:17 Sheath removed; pressure applied to access site. 14:22:27 HR=85 bpm, UPUE=923/72 mmhg, SpO2=99.0 %, Resp=6 B/min, Pain=0, Zhanna=10, Almanza=2 14:24:03 A Left Heart Cath was performed. 14:27:24 HR=81 bpm, YBMV=023/77 mmhg, SpO2=95.0 %, Resp=12 B/min, Pain=0, Zhanna=10, Almanza=2 14:32:29 HR=75 bpm, HSXR=959/71 mmhg, SpO2=96.0 %, Resp=7 B/min, Pain=0, Zhanna=10, Almanza=2 14:37:27 Sterile dressing applied to site 14:37:30 HR=74 bpm, BHIC=896/72 mmhg, SpO2=95.0 %, Resp=12 B/min, Pain=0, Zhanna=10, Almanza=2 14:37:41 Vitals capture stopped. 14:40:51 Patient moved to stretcher End Study - Contrast Media Used In Study Contrast Total Opened (mL) Total Used (mL) Total Wasted (mL) Omnipaque 200 60 140 End Study - Maximum Contrast Load Max Contrast Load (mL) 407.0 End Study - Radiation Exposure Fluoro Time (minutes) 1.6 End Study - Patient Disposition Complications Transferred To Interventional Outcome No Outpatient Bed No attempt made
--- NOTE | 2018-02-22 14:51 | MA ---
cc: Nelia Sol MD DATE: 02/22/2018 INDICATIONS: Angina pectoris, class II angina, intermediate probability nuclear myocardial perfusion study. PROCEDURE PERFORMED: 1. Retrograde left heart catheterization with left ventriculography and selective coronary angiography. 2. Moderate sedation. ACCESS SITE: Right femoral artery. EQUIPMENT USED: 5-Faroese pigtail catheter, 5-Faroese JL4 and AR modified coronary artery catheters. MEDICATIONS: Versed IV, fentanyl IV. CONTRAST: Omnipaque 60 mL. COMPLICATIONS: None. BLOOD LOSS: Less than 10 mL METHOD OF HEMOSTASIS: Manual compression. RESULTS: A. HEMODYNAMICS: Heart rate 79 beats per minute. Left ventricular end-diastolic pressure 5 mmHg. Left ventricle 105/5. Aorta 105/69/86. B. LEFT VENTRICULOGRAPHY: Ejection fraction 65%. Wall motion normal. No mitral regurgitation. C. CORONARY ANGIOGRAPHY: Left main coronary is patent. Left anterior descending artery is patent. D1 patent. D2 patent. Left circumflex artery is patent. OM1 patent. This is a large branching vessel. The right coronary artery is a relatively small but dominant vessel, which is patent. PDA patent. PLV patent. DIAGNOSES: 1. Patent coronary arteries. 2. Preserved left ventricular systolic function. DISPOSITION: Mr. Arevalo can be reassured about his cardiac status. His study revealed widely patent coronary arteries and preserved left ventricular systolic function. I recommend to continue his current medical program. I will see him back for followup in our office after discharge. Nelia Sol MD OQ/LUCINA , 02:27 PM , 02:50 PM MTDKaterine
--- NOTE | 2018-02-23 19:24 | EKG ---
Date Performed: 02/22/2018 Time Performed: 12:58:10 PTAGE: 47 years EKG: Sinus rhythm with PVC(s). Right bundle branch block Abnormal ECG Since the PREVIOUS TRACING , no significant change noted DOCTOR: Nelia Sol Interpretating Date/Time 02/23/2018 19:22:38
== END 2018-02-22 18:00 | disposition home or self-care (01) ==
LOC: HDIC 12:02 → HDOC 12:02
PROVIDERS: ATTEND Internal Medicine Interventional Cardiology
DX: I25.119 Atherosclerotic heart disease of native coronary artery with unspecified angina pectoris (principal); R00.2 Palpitations; I45.10 Unspecified right bundle-branch block; R55 Syncope and collapse; F17.200 Nicotine dependence, unspecified, uncomplicated; F41.9 Anxiety disorder, unspecified; Z82.49 Family history of ischemic heart disease and other diseases of the circulatory system; Z01.818 Encounter for other preprocedural examination
CPT/HCPCS: 80048; 85025; 93005; 93458; 99152; C1769; C1893; J1644; J2250; J3010; Q9967